=== PATIENT | female | born 1955 | race Caucasian/White ===

== ENCOUNTER 2019-01-26 01:35 | Emergency (ER) | payer MEDICARE ==
[~2019-01-26] VITALS: Ht 162.6 cm; Wt 75.7 kg
[2019-01-26 01:40] VITALS: Ht 162.6 cm; Wt 75.7 kg
[2019-01-26 03:06] VITALS: BP 101/65
== END 2019-01-26 03:06 | disposition home or self-care (01) ==
LOC: ED 01:35
DX: S00.03XA Contusion of scalp, initial encounter (principal); F10.129 Alcohol abuse with intoxication, unspecified; W10.8XXA Fall (on) (from) other stairs and steps, initial encounter; Y93.89 Activity, other specified; Y92.89 Other specified places as the place of occurrence of the external cause; Y99.8 Other external cause status